=== PATIENT | male | born 1965 | race Caucasian/White ===

== ENCOUNTER 2019-01-13 13:21 | Emergency (ER) | payer OTHER ==
[2019-01-13 14:02] VITALS: BP 157/85
--- NOTE | 2019-01-13 14:04 | UC ---
Lower Extremity/Ankle HPI - HPI Summary HPI Summary: 53 yo male presents with LEFT calf pain. He tells me that yesterday he was chopping wood and hit the back of his calf on a stump. This morning noticed a palpable vein to his posterior left lower calf that is tender. He began googling his symptoms and is concerned for DVT. Denies SOB or chest pain. No recent travel. - History of Current Complaint Chief Complaint: UCLowerExtremity Stated Complaint: PAIN IN CALF OF LEG Time Seen by Provider: 01/13/19 14:04 Hx Obtained From: Patient Onset/Duration: Sudden Onset Severity Initially: Moderate Severity Currently: Moderate Pain Intensity: 5 Pain Scale Used: 0-10 Numeric - Allergies/Home Medications Allergies/Adverse Reactions: Allergies Allergy/AdvReac Type Severity Reaction Status Date / Time No Known Allergies Allergy Verified 01/13/19 14:02 PMH/Surg Hx/FS Hx/Imm Hx Cardiovascular History: Hypertension - Surgical History Surgical History: Yes Surgery Procedure, Year, and Place: SHOULDER SCOPE 01/24; hernia - Family History Known Family History: Positive: Hypertension - Social History Occupation: Employed Full-time Lives: With Family Alcohol Use: Daily Substance Use Type: None Smoking Status (MU): Never Smoked Tobacco Review of Systems All Other Systems Reviewed And Are Negative: No Constitutional: Positive: Negative Respiratory: Positive: Negative Cardiovascular: Positive: Negative Neurovascular: Positive: Negative Musculoskeletal: Positive: Other: - Calf pain Neurological: Positive: Negative Psychological: Positive: Negative Physical Exam - Summary Physical Exam Summary: GENERAL: NAD. WDWN. No pain distress. SKIN: No rashes, sores, lesions, or open wounds. CHEST: No accessory muscle use. Breathing comfortably and in no distress. CV: Pulses intact PT and DP. Cap refill <2seconds MSK: LEFT CALF: Superficial vein palpable cord with mild TTP. No erythema or open wound. Negative freida sign. Left ANKLE: Strength 5/5. No edema or obvious bony deformities. Negative talar tilt. No increased laxity. Negative [place] test. NEURO: Alert. Sensations intact and symmetric B/L LEs PSYCH: Age appropriate behavior. Triage Information Reviewed: Yes Vital Signs: Initial Vital Signs Temp 99.9 F 01/13/19 13:58 Pulse 98 01/13/19 13:58 Resp 18 01/13/19 13:58 BP 157/85 01/13/19 13:58 Pulse Ox 98 01/13/19 13:58 Vital Signs Reviewed: Yes Diagnostics - Radiology US Radiology Interpretation Completed By: Radiologist Summary of Radiographic Findings: IMPRESSION: #. No evidence for LEFT lower extremity deep venous thrombosis. #. Superficial thrombophlebitis posterior LEFT calf corresponding with the region of clinical concern. Lower Extremity Course/Dx - Course Course Of Treatment: US as above. Discussed with pt. Recommend ibuprofen, elevation, ice/heat, and remaining active. - Differential Dx/Diagnosis Provider Diagnosis: Superficial thrombophlebitis of left leg Discharge ED - Sign-Out/Discharge Documenting (check all that apply): Patient Departure All imaging exams completed and their final reports reviewed: Yes - Discharge Plan Condition: Stable Disposition: HOME Patient Education Materials: Superficial Thrombophlebitis (ED) Referrals: Rufino MYERS,Jonathan Hoover [Primary Care Provider] - Additional Instructions: If you develop a fever, shortness of breath, chest pain, new or worsening symptoms - please call your PCP or go to the ED immediately. Your blood pressure was high at todays visit. Please see your primary provider within 4 weeks for recheck and re-evaluation. Rest and apply ice/heat to the area. Elevate as much as possible. Remain active - Billing Disposition and Condition Condition: STABLE Disposition: Home
== END 2019-01-13 15:31 | disposition home or self-care (01) ==
LOC: UCEAST 13:21
DX: I80.02 Phlebitis and thrombophlebitis of superficial vessels of left lower extremity (principal); I10 Essential (primary) hypertension
CPT/HCPCS: 99211; G0463

== ENCOUNTER 2019-09-27 15:07 | Observation (INO) ==
[2019-09-27] MEDS ORDERED: Morphine 4 MG/ML VIAL (1 ml) IV ONE ×2 (15:35→16:52)
[2019-09-27] MEDS ORDERED: NS 0.9% 1000 ml BAG 1,000 ML IV ONE (15:35)
[2019-09-27] MEDS ORDERED: Ondansetron 4 mg VIAL 2 MG/ML 2 ml VIAL IV ONE (15:35)
[2019-09-27 15:45] LABS: ABS Basophils 0.1 10^3/ul (0-0.2); ABS Lymphocytes 1.5 10^3/ul (1.0-4.8); ABS Monocytes 0.7 10^3/ul (0-0.8); ABS Neutrophils 9.6 10^3/ul (1.5-7.7); Eosinophil % 0.3 %; Hematocrit 48 % (42-52); Hemoglobin 16.8 g/dL (14.0-18.0); Lymphocyte % 12.7 %; Mean Corpuscular HGB Conc 35 g/dL (31-36); Mean Corpuscular Hemoglobin 32 pg (27-31); Mean Corpuscular Volume 92 fL (80-94); Mean Platelet Volume 6.8 fL (7.4-10.4); Nucleated Red Blood Cells % 0.1; Platelet Count 289 10^3/uL (150-450); Red Blood Count 5.27 10^6 /uL (4.18-5.48); Red Cell Distribution Width 14 % (10-15)
[2019-09-27 16:52] LABS: Albumin 4.5 g/dL (3.2-5.2); Albumin/Globulin Ratio 1.7 (1-3); C Reactive Protein 35.58 mg/L (<8.01); Calcium 9.7 mg/dL (8.6-10.3); EGFR African American 65.8 (>60); EGFR Non-African American 54.4 (>60); Globulin 2.6 g/dL (2-4); Total Bilirubin 0.9 mg/dL (0.2-1.0); Total Protein 7.1 g/dL (6.4-8.9)
[2019-09-27] MEDS ORDERED: Iodixanol (CONTRAST) 320 MG/ML 100 ML SDV IV ONE (17:07)
[2019-09-27] MEDS ORDERED: Piperacillin/Tazobac ADVAN 3.375 GM in NS 0.9% 100 ml BAG 100 ML IVPB ONE (17:54)
[2019-09-27] MEDS ORDERED: fentaNYL 100 mcg/2 ml 50 MCG/ML VIAL ONE ×2 (19:49→21:02)
[2019-09-27] MEDS ORDERED: Midazolam 2 mg/2 ml VIAL 1 mg/ml 2 ml VIAL (2 mg) ONE (19:49)
[2019-09-27] MEDS ORDERED: Lidocaine 2% PF 5 ML VIAL ONE (19:49)
[2019-09-27] MEDS ORDERED: Rocuronium 50 mg VIAL 10 mg/ml 5 ml VIAL (50 mg) ONE ×2 (19:49→20:17)
[2019-09-27] MEDS ORDERED: Propofol 10 MG/ML 20 ML BTL ONE ×2 (19:49→21:14)
[2019-09-27] MEDS ORDERED: Succinylcholine 200 mg VIAL 20 mg/ml 10 ml VIAL (200 mg) ONE (19:49)
[2019-09-27] MEDS ORDERED: Bupivacaine 0.25% EPI 200,000 30 ML SDV ONE (19:51)
[2019-09-27] MEDS ORDERED: Naloxone 0.4 mg VIAL 0.4 mg/ml 1 ml VIAL IV PRN (19:54)
[2019-09-27] MEDS ORDERED: HYDROmorphone 1 MG/1 ML SYRINGE IV PRN (19:54)
[2019-09-27] MEDS ORDERED: DiMENhydriNATE IV 50 mg/ml 1 ml VIAL IV PUSH PRN (19:54)
[2019-09-27] MEDS ORDERED: Lactated Ringers 1000 ml BAG 1,000 ML IV SCH (20:00)
[2019-09-27] MEDS ORDERED: Remifentanil 2 MG VIAL ONE ×2 (20:10→20:16)
[2019-09-27] MEDS ORDERED: Phenylephrine 40 mcg/mL 10mL (400mcg) SYRINGE ONE (20:37)
[2019-09-27] MEDS ORDERED: Acetaminophen IV 1 GM/100ML 100 ML ONE (20:47)
[2019-09-27] MEDS ORDERED: Ondansetron 4 mg VIAL 2 MG/ML 2 ml VIAL ONE (20:47)
[2019-09-27] MEDS ORDERED: Dexamethasone IV 4 MG/ML VIAL 1 ml VIAL ONE (21:03)
[2019-09-27] MEDS ORDERED: Sugammadex 500 MG/5 ML 5 ml VIAL IV PUSH ONE (21:17)
[2019-09-27] MEDS ORDERED: oxyCODONE/Acetamin 5/325 mg TAB PO PRN (21:47)
[2019-09-27] MEDS ORDERED: Ondansetron 4 mg VIAL 2 MG/ML 2 ml VIAL IV PRN (21:47)
[2019-09-27] MEDS ORDERED: HYDROmorphone 1 MG/1 ML SYRINGE IV SLOW PU PRN (21:47)
[2019-09-28] MEDS: NS 0.9% 1000 ml BAG 1,000 ML IV SCH ×2 (00:35→07:40)
[2019-09-28] MEDS: Piperacillin/Tazobactam VIAL 3.375 GM in NS 0.9% 100 ml BAG 100 ML IVPB SCH ×2 (00:40→07:47)
[2019-09-28 07:46] VITALS: BP 106/51
== END 2019-09-28 10:35 | disposition home or self-care (01) ==
LOC: ED 15:07 → SSU 20:21
PROVIDERS: ADMIT Surgery; ATTEND Surgery